=== PATIENT | male | born 1940 | race Caucasian/White ===

== ENCOUNTER 2020-11-07 08:45 | Day surgery (SDC) | payer OTHER ==
[~2020-11-07] VITALS: Ht 170.2 cm; Wt 115.9 kg
[~2020-11-07 08:45] MED LIST: Aspirin EC81 MG PO; CLOP75 PO; DOXA4 PO; ESOM20 PO; FURO40 PO; GLIP10 PO; IBUP800 PO; ISOSORBIDE MONO60 MG PO; JANUMET 50-1,01 EACH PO; JARDIANCE10 MG PO; LIVALO2 MG PO; METO50ER PO; MULVITMIND PO; PANT40 PO; PHENERMINE PO; POTCHL10ER PO; [UNRECOGNIZED DRUG - OTHER] PO
--- NOTE | 2020-11-07 12:35 | NUR ---
DR RANDALL IN TO SPEAK TO PATIENT.
--- NOTE | 2020-11-07 13:12 | NUR ---
2CC AIR REMOVED FROM TR BAND. SITE BEGAN TO BLEED. 2CC OF AIR RETURNED TO TR BAND. BLEEDING STOPPED.
--- NOTE | 2020-11-07 14:41 | NUR ---
PT DRESSED, AMB TO BTR W CANE OK, IV DC'D INTACT, TR BAND REMOVED, DRESSSING/SPLINT/SLING PLACED TO R WRIST/ARM. PT DC'D BY WC, DRIVING PT HOME
== END 2020-11-07 14:25 | disposition home or self-care (01) ==
LOC: MHTC 08:45
PROC: B2111ZZ Fluoroscopy of Multiple Coronary Arteries using Low Osmolar Contrast (ICD-10-PCS; principal; 2020-11-07)
PROC: 4A023N7 Measurement of Cardiac Sampling and Pressure, Left Heart, Percutaneous Approach (ICD-10-PCS; principal; 2020-11-07)
DX: I25.118 Atherosclerotic heart disease of native coronary artery with other forms of angina pectoris (principal); I11.0 Hypertensive heart disease with heart failure; I50.9 Heart failure, unspecified; E78.5 Hyperlipidemia, unspecified; E78.00 Pure hypercholesterolemia, unspecified; E11.9 Type 2 diabetes mellitus without complications; E66.01 Morbid (severe) obesity due to excess calories; Z68.39 Body mass index [BMI] 39.0-39.9, adult; Z79.82 Long term (current) use of aspirin; Z79.84 Long term (current) use of oral hypoglycemic drugs; Z79.02 Long term (current) use of antithrombotics/antiplatelets; Z79.899 Other long term (current) drug therapy
CPT/HCPCS: 82947; 93458; 99152; 99153; C1769; C1894; J1644; J2250; J3010; J7030; J7050; Q9967

== ENCOUNTER 2024-11-09 08:59 | Emergency (ER) | payer OTHER ==
[~2024-11-09] VITALS: Ht 167.6 cm; Wt 107.0 kg
[2024-11-09 09:32] VITALS: BP 172/88
[2024-11-09 09:58] LABS: BASOPHILS ABSOLUTE AUTO 0.04 K/mm3 (0.00-0.23); BASOPHILS PERCENT AUTO 1 % (0-2); EOSINOPHILS ABSOLUTE AUTO 0.05 K/mm3 (0.00-0.68); EOSINOPHILS PERCENT AUTO 1 % (0-6); Hematocrit 42.7 % (37.0-53.0); Hemoglobin 14.6 g/dL (13.5-17.5); IMMATURE GRAN ABSOLUTE AUTO 0.08 K/mm3 (0.00-0.10); IMMATURE GRAN PERCENT AUTO 1 % (0-1); LYMPHOCYTES ABSOLUTE AUTO 1.17 K/mm3 (0.84-5.20); LYMPHOCYTES PERCENT AUTO 19 % (21-46); MONOCYTES ABSOLUTE AUTO 0.42 K/mm3 (0.16-1.47); MONOCYTES PERCENT AUTO 7 % (4-13); Mean Corpuscular HGB 33.8 pg (26.0-34.0); Mean Corpuscular HGB Conc 34.2 g/dL (31.5-36.5); Mean Corpuscular Volume 99 fL (80-100); Mean Platelet Volume 9.8 fL (9.1-12.4); NEUTROPHILS ABSOLUTE AUTO 4.45 K/mm3 (1.96-9.15); NEUTROPHILS PERCENT AUTO 72 % (41-73); Platelet Count 182 K/mm3 (150-400); RDW Coefficient Variation 13.4 % (11.7-14.2); RDW Standard Deviation 48.6 fL (35.1-46.3); Red Blood Cell Count 4.32 M/mm3 (4.30-5.90); White Blood Cell Count 6.21 K/mm3 (4.00-11.30)
[2024-11-09 10:25] LABS: Albumin, Blood 3.4 g/dL (3.4-5.0); Albumin/Globulin Ratio 0.9 (0.8-1.8); Bilirubin, Total 0.5 mg/dL (0.1-1.0); Bun/Creatinine Ratio 28.4 (12.0-20.0); Calcium, Blood 8.7 mg/dL (8.5-10.1); Creatinine, Blood 0.84 mg/dL (0.60-1.20); Globulin, Blood 3.6 g/dL (2.2-4.0)
[2024-11-09] MEDS ORDERED: NS 1,000 ML IV SCH (12:25)
== END 2024-11-09 13:34 | disposition home or self-care (01) ==
LOC: ER 08:59
PROVIDERS: Emergency Medicine
DX: R55 Syncope and collapse (principal); E86.0 Dehydration; E11.22 Type 2 diabetes mellitus with diabetic chronic kidney disease; I12.9 Hypertensive chronic kidney disease with stage 1 through stage 4 chronic kidney disease, or unspecified chronic kidney disease; N18.9 Chronic kidney disease, unspecified; I25.10 Atherosclerotic heart disease of native coronary artery without angina pectoris; Z95.1 Presence of aortocoronary bypass graft; Z79.82 Long term (current) use of aspirin; Z79.899 Other long term (current) drug therapy
CPT/HCPCS: 70450; 71045; 73030; 80053; 84484; 85025; 93005; 93010; 93246; 99285-25; J7030

== ENCOUNTER 2025-02-07 23:53 | Observation (INO) | payer OTHER ==
[~2025-02-07] VITALS: Ht 170.2 cm; Wt 106.1 kg
[2025-02-08] MEDS ORDERED: Ondansetron HCl 2 MG / ML 2ML Vial IV PRN (00:25)
[2025-02-08 00:26] LABS: BASOPHILS ABSOLUTE AUTO 0.03 K/mm3 (0.00-0.23); BASOPHILS PERCENT AUTO 0 % (0-2); EOSINOPHILS ABSOLUTE AUTO 0.09 K/mm3 (0.00-0.68); EOSINOPHILS PERCENT AUTO 1 % (0-6); Hematocrit 43.7 % (37.0-53.0); Hemoglobin 14.4 g/dL (13.5-17.5); IMMATURE GRAN ABSOLUTE AUTO 0.02 K/mm3 (0.00-0.10); IMMATURE GRAN PERCENT AUTO 0 % (0-1); LYMPHOCYTES ABSOLUTE AUTO 2.15 K/mm3 (0.84-5.20); LYMPHOCYTES PERCENT AUTO 31 % (21-46); MONOCYTES ABSOLUTE AUTO 0.55 K/mm3 (0.16-1.47); MONOCYTES PERCENT AUTO 8 % (4-13); Mean Corpuscular Volume 100 fL (80-100); NEUTROPHILS PERCENT AUTO 59 % (41-73); Platelet Count 195 K/mm3 (150-400); RDW Coefficient Variation 13.6 % (11.7-14.2); Red Blood Cell Count 4.36 M/mm3 (4.30-5.90); White Blood Cell Count 6.84 K/mm3 (4.00-11.30)
[2025-02-08 00:41] LABS: Albumin, Blood 3.5 g/dL (3.4-5.0); Bilirubin, Total 0.3 mg/dL (0.1-1.0); Bun/Creatinine Ratio 32.5 (12.0-20.0); Calcium, Blood 8.6 mg/dL (8.5-10.1); Creatinine, Blood 0.92 mg/dL (0.60-1.20); Globulin, Blood 3.4 g/dL (2.2-4.0); Potassium, Blood 4.1 mmol/L (3.5-5.5); Total Protein, Blood 6.9 g/dL (6.4-8.2)
[2025-02-08] MEDS ORDERED: Acetaminophen 325 MG TABLET PO PRN (02:50)
[2025-02-08 05:34] LABS: BASOPHILS ABSOLUTE AUTO 0.04 K/mm3 (0.00-0.23); BASOPHILS PERCENT AUTO 1 % (0-2); EOSINOPHILS ABSOLUTE AUTO 0.02 K/mm3 (0.00-0.68); EOSINOPHILS PERCENT AUTO 0 % (0-6); Hematocrit 43.6 % (37.0-53.0); Hemoglobin 14.7 g/dL (13.5-17.5); IMMATURE GRAN ABSOLUTE AUTO 0.02 K/mm3 (0.00-0.10); IMMATURE GRAN PERCENT AUTO 0 % (0-1); LYMPHOCYTES ABSOLUTE AUTO 1.03 K/mm3 (0.84-5.20); LYMPHOCYTES PERCENT AUTO 16 % (21-46); MONOCYTES ABSOLUTE AUTO 0.35 K/mm3 (0.16-1.47); MONOCYTES PERCENT AUTO 5 % (4-13); Mean Corpuscular HGB 33.7 pg (26.0-34.0); Mean Corpuscular HGB Conc 33.7 g/dL (31.5-36.5); Mean Corpuscular Volume 100 fL (80-100); Mean Platelet Volume 10.2 fL (9.1-12.4); NEUTROPHILS ABSOLUTE AUTO 5.08 K/mm3 (1.96-9.15); NEUTROPHILS PERCENT AUTO 78 % (41-73); Platelet Count 188 K/mm3 (150-400); RDW Coefficient Variation 13.6 % (11.7-14.2); RDW Standard Deviation 50.2 fL (35.1-46.3); Red Blood Cell Count 4.36 M/mm3 (4.30-5.90); White Blood Cell Count 6.54 K/mm3 (4.00-11.30)
[2025-02-08 05:54] VITALS: BP 132/75
[2025-02-08 05:59] LABS: Albumin, Blood 3.4 g/dL (3.4-5.0); Bilirubin, Total 0.3 mg/dL (0.1-1.0); Bun/Creatinine Ratio 34.9 (12.0-20.0); Calcium, Blood 8.7 mg/dL (8.5-10.1); Creatinine, Blood 0.83 mg/dL (0.60-1.20); Globulin, Blood 3.3 g/dL (2.2-4.0); Magnesium, Blood 2.3 mg/dL (1.6-2.4); Potassium, Blood 4.7 mmol/L (3.5-5.5); Total Protein, Blood 6.7 g/dL (6.4-8.2)
[2025-02-08] MEDS ORDERED: Insulin Human Lispro 100 Units/ML 3ML Syringe SC SCH (07:30)
[2025-02-08 07:43] VITALS: BP 147/74
--- NOTE | 2025-02-08 08:34 | NUR ---
PT ADMITTED THIS SHIFT WITH DX SYNCOPE,SO FAR W/U REPORTED NEGATIVE FOR CAUSE PER SIDE PANEL PADDER. PT ALERT AND ORIENTED COQUILLE,"BLIND " R EYE,DENIES CP OR SOB TELE ON WITH Rate 74-74 SINUS RHYTHMN, PT REPORTS WAS GAGING-N/V PRIOR TO WAKING ON FLOOR, ALSO REPORTS WHEN HAD EPISODE PREVIOUSLY WAS "CONSTIPTATED " AND STRAINING,I REPORTED THIS TO DAY RN WHO AGREES TO FOLLOW UP REGARDING THIS ON DR BARNHART.PT USED URINAL,DRINKING COFEE.NO C/O CP OR SOB, NO C/O DIZZYNESS.
[2025-02-08] MEDS ORDERED: Enoxaparin 40 MG/0.4 ML SYR SC SCH (09:00)
[2025-02-08] MEDS ORDERED: Docusate Sodium 100 MG Cap PO SCH (09:00)
--- NOTE | 2025-02-08 14:06 | NUR ---
discharge PT DISCHARGE HOME VIA W/C ACCOMAPNIED BY OBDULIA. FAMIL;Y AT BEDSIDE. IV REMOVED. FAMILY PACKED UP BELONGINGS. CARE ONGOING.
[2025-02-09] MEDS ORDERED: Metoprolol Succinate 50 MG TABCR PO SCH (09:00)
[2025-02-09] MEDS ORDERED: Empagliflozin 25 MG TAB PO SCH (09:00)
== END 2025-02-08 14:04 | disposition home or self-care (01) ==
LOC: ER 23:53 → ERHOLD 23:54 → MEDS 23:54
PROVIDERS: Student in an Organized Health Care Education/Training Program; ADMIT Student in an Organized Health Care Education/Training Program
DX: R55 Syncope and collapse (principal); I45.10 Unspecified right bundle-branch block; I25.10 Atherosclerotic heart disease of native coronary artery without angina pectoris; I12.9 Hypertensive chronic kidney disease with stage 1 through stage 4 chronic kidney disease, or unspecified chronic kidney disease; E11.22 Type 2 diabetes mellitus with diabetic chronic kidney disease; N18.9 Chronic kidney disease, unspecified; Z95.1 Presence of aortocoronary bypass graft; Z79.82 Long term (current) use of aspirin; Z79.84 Long term (current) use of oral hypoglycemic drugs; Z79.899 Other long term (current) drug therapy
CPT/HCPCS: 70450; 72125; 80053; 82550; 82947; 83036; 83690; 83735; 85025; 93005; 93010; 93306; A9270; J1650

== ENCOUNTER → 2025-02-26 | Outpatient (CLI) | payer OTHER ==
[2025-02-26 10:20] LABS: Source, Urine Straight Cath
[2025-02-26 10:26] LABS: Bacteria Rare /hpf; Squamous Epithelial Cells Rare /hpf (Few)
== END ==
LOC: LAB 10:19 → LAB SHORT 10:19
PROVIDERS: Physician Assistant
DX: R33.9 Retention of urine, unspecified (principal)
CPT/HCPCS: 81015; 87077; 87086; 87147; 87186

== ENCOUNTER → 2025-03-14 | Outpatient (CLI) | payer OTHER | LOC: LAB SHORT 16:33 → LAB 16:33 | DX: L02.512 Cutaneous abscess of left hand (principal) | CPT/HCPCS: 87070; 87075; 87077; 87147; 87186; 87205 ==

== ENCOUNTER 2025-04-29 19:25 | Emergency (ER) | payer OTHER ==
[~2025-04-29] VITALS: Ht 167.6 cm; Wt 103.9 kg
[~2025-04-29 19:25] MED LIST changes: +ACET500; +AMOCLA500 PO; +ASPI81CH PO; +CENTRUM SILVER1 EAC2 PO; +Cleocin HCl150 MG PO; +DULO30 PO; +ELIQUIS5 M2 PO; +JANUMET PO; +JARDIANCE25 MG PO; +LISI5 PO; +SULFAMETHOXAZO1 EAC1 PO; +TAMS.4ER PO
[2025-04-30 00:22] LABS: Source, Urine Foley catheter
[2025-04-30 00:28] LABS: Bilirubin, Urine Neg (Neg); Glucose Qualitative, Urine 4+ (Neg); Ketones, Urine Neg (Neg); Leukocyte Esterase, Urine 2+ (Neg); Protein, Urine 2+ (Neg); Specific Gravity, Urine 1.015 (1.003-1.022); Urobilinogen, Urine NORM (Normal)
[2025-04-30 00:44] LABS: Color, Urine Yellow (P-Yellow)
[2025-04-30 00:49] LABS: Red Blood Cells, Urine 50-100 /hpf (0-2); White Blood Cells, Urine 25-50 /hpf (0-5)
[2025-04-30] MEDS ORDERED: CEFP200 PO (00:56)
[2025-04-30 01:11] VITALS: BP 133/71
[2025-05-01 09:42] LABS: Calcium, Ionized (POC) 1.20 mmol/L (1.10-1.46); Chloride (POC) 106 mmol/L (98-108); Creatinine (POC) 1.2 mg/dL (0.8-1.3); Glucose (ISTAT POC) 342 mg/dL (70-99); Hematocrit (POC) 43.0 % (41.0-53.0); Hemoglobin (POC) 14.6 g/dL (13.5-17.5); Potassium (POC) 4.2 mmol/L (3.5-5.5); Sodium (POC) 139 mmol/L (135-148); Total CO2 (POC) 22 mmol/L (21-32)
== END 2025-04-30 01:24 | disposition home or self-care (01) ==
LOC: ER 19:25
PROVIDERS: Physician Assistant
DX: T83.091A Other mechanical complication of indwelling urethral catheter, initial encounter (principal); I10 Essential (primary) hypertension; E11.9 Type 2 diabetes mellitus without complications; Z95.0 Presence of cardiac pacemaker; Z79.2 Long term (current) use of antibiotics; Z79.01 Long term (current) use of anticoagulants; Z79.899 Other long term (current) drug therapy
CPT/HCPCS: 51702; 80047; 81001; 85014; 87077; 87086; 87186; 99283-25

== ENCOUNTER 2025-05-28 21:39 | Emergency (ER) | payer OTHER ==
[~2025-05-28] VITALS: Ht 175.3 cm; Wt 99.8 kg
[~2025-05-28 21:39] MED LIST changes: -CEPH500 PO
[2025-05-28] MEDS ORDERED: Lidocaine 2% Jelly Uro-Jet UR ONE (22:50)
[2025-05-28] MEDS ORDERED: HYDROmorphone HCl/Pf 1MG SYR IV ONE ×2 (22:50→23:45)
[2025-05-28] MEDS ORDERED: Ondansetron HCl 2 MG / ML 2ML Vial IV ONE (22:50)
[2025-05-28 23:06] LABS: BASOPHILS ABSOLUTE AUTO 0.06 K/mm3 (0.00-0.23); BASOPHILS PERCENT AUTO 1 % (0-2); EOSINOPHILS ABSOLUTE AUTO 0.15 K/mm3 (0.00-0.68); EOSINOPHILS PERCENT AUTO 2 % (0-6); Hematocrit 44.2 % (37.0-53.0); Hemoglobin 14.2 g/dL (13.5-17.5); IMMATURE GRAN ABSOLUTE AUTO 0.03 K/mm3 (0.00-0.10); IMMATURE GRAN PERCENT AUTO 0 % (0-1); LYMPHOCYTES ABSOLUTE AUTO 2.17 K/mm3 (0.84-5.20); LYMPHOCYTES PERCENT AUTO 26 % (21-46); MONOCYTES ABSOLUTE AUTO 0.76 K/mm3 (0.16-1.47); MONOCYTES PERCENT AUTO 9 % (4-13); Mean Corpuscular HGB Conc 32.1 g/dL (31.5-36.5); Mean Corpuscular Volume 98 fL (80-100); NEUTROPHILS ABSOLUTE AUTO 5.28 K/mm3 (1.96-9.15); NEUTROPHILS PERCENT AUTO 62 % (41-73); NRBC ABSOLUTE 0.00 K/mm3 (0.00-0.02); NRBC Auto 0.0 /100 WBC (0.0-0.2); Platelet Count 265 K/mm3 (150-400); RDW Coefficient Variation 14.6 % (11.7-14.2); RDW Standard Deviation 52.7 fL (35.1-46.3)
[2025-05-28 23:18] LABS: Alanine Aminotransfer (ALT/SGP 36.0 U/L (12-78); Albumin, Blood 3.1 g/dL (3.4-5.0); Albumin/Globulin Ratio 0.6 (0.8-1.8); Anion Gap 8.0 mmol/L (3-11); Aspartate Aminotrans (AST/SGOT 30.0 U/L (12-37); Bilirubin, Total 0.3 mg/dL (0.1-1.0); Blood Urea Nitrogen 37.0 mg/dL (8-24); CO2, Blood 24.0 mmol/L (21-32); Calcium, Blood 8.7 mg/dL (8.5-10.1); Chloride, Blood 105.0 mmol/L (98-108); Creatinine, Blood 0.9 mg/dL (0.60-1.20); Globulin, Blood 4.9 g/dL (2.2-4.0); Glucose, Blood 197.0 mg/dL (70-99); Potassium, Blood 5.1 mmol/L (3.5-5.5); Sodium, Blood 132.0 mmol/L (136-145); Total Protein, Blood 8.0 g/dL (6.4-8.2)
[2025-05-29 00:42] LABS: Source, Urine Foley catheter
[2025-05-29 00:54] LABS: Bilirubin, Urine Neg (Neg); Color, Urine Yellow (P-Yellow); Glucose Qualitative, Urine 4+ (Neg); Ketones, Urine Neg (Neg); Leukocyte Esterase, Urine 2+ (Neg); Protein, Urine 2+ (Neg); Specific Gravity, Urine 1.015 (1.003-1.022); Urobilinogen, Urine NORM (Normal)
[2025-05-29 01:04] LABS: Red Blood Cells, Urine TNTC /hpf (0-2)
[2025-05-29 01:05] VITALS: BP 111/60
[2025-05-29] MEDS ORDERED: CEPH500 PO ×2 (01:19→01:43)
[2025-05-29] MEDS ORDERED: CefTRIAXone Sodium 1,000 MG in NS 50 ML IV ONE (01:20)
== END 2025-05-29 02:00 | disposition home or self-care (01) ==
LOC: ER 21:39
PROVIDERS: Emergency Medicine
DX: T83.511A Infection and inflammatory reaction due to indwelling urethral catheter, initial encounter (principal); T83.091A Other mechanical complication of indwelling urethral catheter, initial encounter; R31.9 Hematuria, unspecified; E11.9 Type 2 diabetes mellitus without complications; N40.1 Benign prostatic hyperplasia with lower urinary tract symptoms; R33.9 Retention of urine, unspecified; R39.15 Urgency of urination
CPT/HCPCS: 36415; 51700; 51702; 80053; 81001; 82043; 82570; 83036; 84153; 85025; 87086; 96374-59; 96375-59; 96376-59; 99283-25; J0696; J1171; J2405

== ENCOUNTER → 2025-05-28 | Outpatient (CLI) | payer OTHER ==
[~2025-05-28] MED LIST changes: +CEFP200 PO; +CEPH500 PO
== END ==
LOC: LAB 16:59 → LAB SHORT 16:59
DX: R39.15 Urgency of urination (principal)
CPT/HCPCS: 87086

== ENCOUNTER → 2025-07-01 | Outpatient (CLI) | payer OTHER ==
[~2025-07-01] MED LIST changes: +CEPH500 PO
== END ==
LOC: LAB SHORT 15:15 → LAB 15:15
DX: R30.0 Dysuria (principal)
CPT/HCPCS: 87086

== ENCOUNTER → 2025-08-06 | Outpatient (CLI) | payer OTHER | LOC: LAB 14:40 → LAB SHORT 14:40 | DX: N39.0 Urinary tract infection, site not specified (principal) | CPT/HCPCS: 87077; 87086; 87106; 87186 ==

== ENCOUNTER 2025-08-13 19:43 | Emergency (ER) | payer OTHER ==
[~2025-08-13] VITALS: Ht 167.6 cm; Wt 102.1 kg
[2025-08-13 20:36] VITALS: BP 169/95
[2025-08-13 21:26] LABS: Source, Urine Clean Catch
[2025-08-13 22:05] LABS: Bilirubin, Urine Neg (Neg); Color, Urine Yellow (P-Yellow); Glucose Qualitative, Urine 4+ (Neg); Ketones, Urine Neg (Neg); Leukocyte Esterase, Urine 1+ (Neg); Protein, Urine 2+ (Neg); Specific Gravity, Urine 1.010 (1.003-1.022); Urobilinogen, Urine NORM (Normal)
[2025-08-13 22:17] LABS: Red Blood Cells, Urine TNTC /hpf (0-2); White Blood Cells, Urine 0-2 /hpf (0-5)
== END 2025-08-13 21:20 | disposition home or self-care (01) ==
LOC: ER 19:43
PROVIDERS: Student in an Organized Health Care Education/Training Program
DX: T83.091A Other mechanical complication of indwelling urethral catheter, initial encounter (principal); R80.9 Proteinuria, unspecified; R31.9 Hematuria, unspecified; R81 Glycosuria; E11.22 Type 2 diabetes mellitus with diabetic chronic kidney disease; I12.9 Hypertensive chronic kidney disease with stage 1 through stage 4 chronic kidney disease, or unspecified chronic kidney disease; N18.9 Chronic kidney disease, unspecified; Z79.82 Long term (current) use of aspirin; Z79.899 Other long term (current) drug therapy
CPT/HCPCS: 51702; 81001; 87086; 87106; 99283-25

== ENCOUNTER → 2025-08-14 | Outpatient (CLI) | payer OTHER | LOC: LAB 10:52 → LAB SHORT 10:52 | DX: R30.0 Dysuria (principal) | CPT/HCPCS: 87086; 87106 ==